=== PATIENT | female | born 1970 | race Caucasian/White ===

== ENCOUNTER → 2016-08-07 | Outpatient (CLI) | payer BC ==
--- NOTE | 2016-08-07 10:10 | MM ---
Reason for exam: screening (asymptomatic). Last mammogram was performed 4 years and 7 months ago. History: Took hormonal contraceptives for 10 years beginning at age 18. Physical Findings: A clinical breast exam by your physician is recommended on an annual basis and results should be correlated with mammographic findings. MG Screening Mammo w CAD Bilateral CC and MLO view(s) were taken. Prior study comparison: January 11, 2012, bilateral digital screening mammo w/CAD. November 14, 2010, bilateral digital screening mammo w/CAD. The breast tissue is heterogeneously dense. This may lower the sensitivity of mammography. There is no discrete abnormality. ASSESSMENT: Negative, BI-RAD 1 RECOMMENDATION: Routine screening mammogram of both breasts in 1 year.
== END | disposition home or self-care (01) ==
LOC: RADMAMWWP 07:22
PROVIDERS: ATTEND Obstetrics & Gynecology
DX: Z12.31 Encounter for screening mammogram for malignant neoplasm of breast (principal)

== ENCOUNTER → 2016-08-07 | Outpatient (CLI) | payer BC ==
[2016-08-07 08:10] LABS: CH 31.2; CHCM 33.3; HCT 37.8 % (34.0-46.0); HDW 2.38; HGB 12.2 gm/dL (11.4-16.0); MCH 30.3 pg (25.0-35.0); MCHC 32.2 g/dL (31.0-37.0); MCV 94.2 fL (80.0-100.0); Mean Platelet Volume 6.5; RBC 4.02 m/uL (3.80-5.40); RDW 12.7 % (11.5-15.5); WBC 5.8 k/uL (3.8-10.6)
[2016-08-07 09:00] LABS: ALT 35 U/L (9-52); AST 47 U/L (14-36); Alkaline Phosphatase 66 U/L (38-126); Anion Gap 9 mmol/L; Blood Urea Nitrogen 11 mg/dL (7-17); Calcium 8.8 mg/dL (8.4-10.2); Carbon Dioxide 25 mmol/L (22-30); Chloride 104 mmol/L (98-107); Cholesterol 156 mg/dL (<200); Glucose 86 mg/dL (74-99); HDL Cholesterol 75 mg/dL (40-60); Non-African American GFR(MDRD) >60 (>60 ml/min/1.73 sqM); Potassium 4.1 mmol/L (3.5-5.1); Sodium 138 mmol/L (137-145); Total Bilirubin 0.6 mg/dL (0.2-1.3); Total Protein 6.9 g/dL (6.3-8.2); Triglycerides 64 mg/dL (<150)
[2016-08-08 11:58] LABS: Gliadin AB IgA, Deaminated 4 UNITS (<20); Gliadin AB IgG, Deaminated 2 UNITS (<20)
[2016-08-08 12:13] LABS: Alternaria alternata IgE <0.35 kU/L (<0.35); Asperg. fumagatus IgE <0.35 kU/L (<0.35); Asperg. fumagatus IgE Class CLASS 0; Birch(Com.Silvr) IgE Class CLASS III; Cat Epith & Dander IgE 2.63 kU/L (<0.35); Cat Epith & Dander IgE Class CLASS II; Clad herbarum IgE <0.35 kU/L (<0.35); Clad herbarum IgE Class CLASS 0; Common Ragweed IgE Class CLASS III; Dermato. Pteronyssinus Class CLASS II; Dermato. Pteronyssinus IgE 1.01 kU/L (<0.35); Dermato. farinae IgE 1.02 kU/L (<0.35); Dermato. farinae IgE Class CLASS II; Maple (Box Elder) IgE 4.38 kU/L (<0.35); Maple (Box Elder) IgE Class CLASS III; Mountain Cedar IgE <0.35 kU/L (<0.35); Mountain Cedar IgE Class CLASS 0; Mouse Urine IgE Class CLASS II; Mulberry IgE Class CLASS 0; Nettle IgE Class CLASS I; Oak IgE 2.25 kU/L (<0.35); Penicillium notatum IgE Class CLASS 0; Rough Marshelder IgE 1.36 kU/L (<0.35); Rough Marshelder IgE Class CLASS II; Timothy Grass IgE 3.11 kU/L (<0.35); Timothy Grass IgE Class CLASS II; White Ash IgE Class CLASS II
== END | disposition home or self-care (01) ==
LOC: LABWHC1 07:19
PROVIDERS: ATTEND Nurse Practitioner Primary Care
DX: Z00.01 Encounter for general adult medical examination with abnormal findings (principal); R19.7 Diarrhea, unspecified; Z88.9 Allergy status to unspecified drugs, medicaments and biological substances
CPT/HCPCS: 36415; 80053; 80061; 82306; 82785; 83516; 84443; 85027; 86003

== ENCOUNTER → 2016-08-25 | Outpatient (CLI) | payer BC ==
--- NOTE | 2016-08-25 16:51 | US ---
EXAMINATION TYPE: US pelvic complete DATE OF EXAM: 08/25/2016 COMPARISON: NONE CLINICAL HISTORY: N92.0 Menorrhagia. 1 episode of menorrhagia TECHNIQUE: TA Date of LMP: 07/25/2016 EXAM MEASUREMENTS: Uterus: 9.7 x 5.1 x 3.34 cm Endometrial Stripe: 0.4 cm Right Ovary: 3.0 x 2.1 x 1.3 cm Left Ovary: 2.8 x 2.0 x 1.3 cm 1. Uterus: Anteverted wnl 2. Endometrium: wnl 3. Right Ovary: 1.3cm follicle seen, wnl 4. Left Ovary: wnl 5. Bilateral Adnexa: wnl 6. Posterior cul-de-sac: wnl IMPRESSION: Normal transabdominal pelvic sonogram. No adnexal mass or free fluid. Normal endometrium.
== END | disposition home or self-care (01) ==
LOC: RADUSWWP 15:57
PROVIDERS: ATTEND Obstetrics & Gynecology
DX: N92.0 Excessive and frequent menstruation with regular cycle (principal)
CPT/HCPCS: 76856

== ENCOUNTER → 2017-08-21 | Outpatient (CLI) | payer BC ==
[2017-08-21 08:35] LABS: Basophils % (A) 0 %; Eosinophils # (A) 0.2 k/uL (0-0.7); Eosinophils % (A) 4 %; HCT 38.9 % (34.0-46.0); HGB 13.1 gm/dL (11.4-16.0); Lymphocytes # (A) 1.1 k/uL (1.0-4.8); Lymphocytes % (A) 23 %; MCH 30.7 pg (25.0-35.0); MCHC 33.6 g/dL (31.0-37.0); MCV 91.4 fL (80.0-100.0); Mean Platelet Volume 6.4; Monocytes # (A) 0.2 k/uL (0-1.0); Monocytes % (A) 5 %; Neutrophils # (A) 3.2 k/uL (1.3-7.7); Neutrophils % (A) 66 %; Platelet Count 225 k/uL (150-450); RBC 4.26 m/uL (3.80-5.40); RDW 12.7 % (11.5-15.5); WBC 4.9 k/uL (3.8-10.6)
[2017-08-21 08:43] LABS: ALT 35 U/L (9-52); AST 41 U/L (14-36); Albumin 4.2 g/dL (3.5-5.0); Alkaline Phosphatase 57 U/L (38-126); Anion Gap 11 mmol/L; Blood Urea Nitrogen 12 mg/dL (7-17); Calcium 8.6 mg/dL (8.4-10.2); Carbon Dioxide 25 mmol/L (22-30); Chloride 105 mmol/L (98-107); Cholesterol 158 mg/dL (<200); Glucose 88 mg/dL (74-99); HDL Cholesterol 68 mg/dL (40-60); LDL Cholesterol,Calculated 79 mg/dL (0-99); Potassium 4.2 mmol/L (3.5-5.1); Sodium 141 mmol/L (137-145); Total Bilirubin 0.5 mg/dL (0.2-1.3); Total Protein 6.7 g/dL (6.3-8.2); Triglycerides 57 mg/dL (<150)
== END | disposition home or self-care (01) ==
LOC: LABWHC1 07:58
PROVIDERS: ATTEND Nurse Practitioner Primary Care
DX: Z00.00 Encounter for general adult medical examination without abnormal findings (principal)
CPT/HCPCS: 36415; 80053; 80061; 82306; 84443; 85025

== ENCOUNTER → 2017-08-27 | Outpatient (CLI) | payer BC ==
--- NOTE | 2017-08-27 09:36 | XR ---
EXAMINATION TYPE: XR chest 2V DATE OF EXAM: 08/27/2017 COMPARISON: NONE HISTORY: COPD TECHNIQUE: Frontal and lateral views of the chest are obtained. FINDINGS: There is no focal air space opacity, pleural effusion, or pneumothorax seen. The cardiac silhouette size is within normal limits. The osseous structures are intact. Surgical clips are pres ent in the right upper quadrant. IMPRESSION: No acute cardiopulmonary process.
[2017-08-28 11:01] LABS: Alt. alternata IgE Class CLASS 0; Alternaria alternata IgE <0.35 kU/L (<0.35); Asperg. fumagatus IgE <0.35 kU/L (<0.35); Asperg. fumagatus IgE Class CLASS 0; Bermuda Grass IgE 2.23 kU/L (<0.35); Birch(Com.Silvr) IgE 4.08 kU/L (<0.35); Birch(Com.Silvr) IgE Class CLASS III; Cat Epith & Dander IgE 5.89 kU/L (<0.35); Cat Epith & Dander IgE Class CLASS III; Clad herbarum IgE <0.35 kU/L (<0.35); Cockroach IgE <0.35 kU/L (<0.35); Cottonwood IgE 0.87 kU/L (<0.35); Dermato. Pteronyssinus IgE 1.43 kU/L (<0.35); Dermato. farinae IgE 1.42 kU/L (<0.35); Dermato. farinae IgE Class CLASS II; Elm IgE 1.03 kU/L (<0.35); Maple (Box Elder) IgE 3.51 kU/L (<0.35); Maple (Box Elder) IgE Class CLASS III; Mountain Cedar IgE 0.43 kU/L (<0.35); Mountain Cedar IgE Class CLASS I; Mouse Urine IgE Class CLASS I; Nettle IgE <0.35 kU/L (<0.35); Nettle IgE Class CLASS 0; Oak IgE 1.75 kU/L (<0.35); Penicillium notatum IgE Class CLASS 0; Rough Marshelder IgE 1.04 kU/L (<0.35); Rough Marshelder IgE Class CLASS II; White Ash IgE Class CLASS II
== END | disposition home or self-care (01) ==
LOC: LABWHC1 08:27
PROVIDERS: ATTEND Internal Medicine Endocrinology, Diabetes & Metabolism
DX: J44.9 Chronic obstructive pulmonary disease, unspecified (principal); B44.81 Allergic bronchopulmonary aspergillosis
CPT/HCPCS: 36415; 71046; 82785; 86001; 86003; 86606; 86609

== ENCOUNTER → 2017-09-18 | Outpatient (CLI) | payer BC ==
--- NOTE | 2017-09-19 12:48 | MM ---
Reason for exam: screening (asymptomatic). Last mammogram was performed 1 year and 1 month ago. History: Took hormonal contraceptives for 10 years beginning at age 18. Physical Findings: A clinical breast exam by your physician is recommended on an annual basis and results should be correlated with mammographic findings. MG 3D Screening Mammo W/Cad Bilateral CC and MLO view(s) were taken. Prior study comparison: August 07, 2016, bilateral MG screening mammo w CAD. January 11, 2012, bilateral digital screening mammo w/CAD. The breast tissue is heterogeneously dense. This may lower the sensitivity of mammography. There is no discrete abnormality. No significant changes when compared with prior studies. ASSESSMENT: Negative, BI-RAD 1 RECOMMENDATION: Routine screening mammogram of both breasts in 1 year.
== END | disposition home or self-care (01) ==
LOC: RADMAMWWP 10:57
PROVIDERS: ATTEND Obstetrics & Gynecology
DX: Z12.31 Encounter for screening mammogram for malignant neoplasm of breast (principal)
CPT/HCPCS: 77063; 77067

== ENCOUNTER → 2018-11-07 | Outpatient (CLI) | payer BC ==
--- NOTE | 2018-11-08 13:43 | MM ---
Reason for exam: screening (asymptomatic). Last mammogram was performed 1 year and 2 months ago. History: Took hormonal contraceptives for 10 years beginning at age 18. Physical Findings: A clinical breast exam by your physician is recommended on an annual basis and results should be correlated with mammographic findings. MG 3D Screening Mammo W/Cad Bilateral CC and MLO view(s) were taken. Prior study comparison: September 18, 2017, bilateral MG 3d screening mammo w/cad. August 07, 2016, bilateral MG screening mammo w CAD. The breast tissue is heterogeneously dense. This may lower the sensitivity of mammography. No suspicious abnormality. No significant changes when compared with prior studies. ASSESSMENT: Negative, BI-RAD 1 RECOMMENDATION: Routine screening mammogram of both breasts in 1 year.
== END ==
LOC: RADMAMWWP 08:30
PROVIDERS: ATTEND Obstetrics & Gynecology
DX: Z12.31 Encounter for screening mammogram for malignant neoplasm of breast (principal)
CPT/HCPCS: 77063; 77067

== ENCOUNTER → 2019-03-18 | Outpatient (CLI) | payer BC ==
--- NOTE | 2019-03-19 08:27 | US ---
EXAMINATION TYPE: US pelvic complete DATE OF EXAM: 03/18/2019 COMPARISON: NONE CLINICAL HISTORY: R10.2 Pelvic pain. TECHNIQUE: Transabdominal (TA). Date of LMP: 03-04-19 EXAM MEASUREMENTS: Uterus: 9.3 x 3.6 x 3.9 cm Endometrial Stripe: 0.7 cm Right Ovary: 2.8 x 1.7 x 1.7 cm Left Ovary: 2.4 x 1.8 x 1.9 cm 1. Uterus: Anteverted wnl 2. Endometrium: wnl 3. Right Ovary: wnl 4. Left Ovary: wnl 5. Bilateral Adnexa: wnl 6. Posterior cul-de-sac: wnl Urinary bladder is sonolucent. Posterior IMPRESSION: 1. No acute abnormality.
== END | disposition home or self-care (01) ==
LOC: RADUSWWP 15:21
PROVIDERS: ATTEND Obstetrics & Gynecology
DX: R10.2 Pelvic and perineal pain (principal)
CPT/HCPCS: 76856

== ENCOUNTER → 2019-04-10 | Outpatient (CLI) | payer BC ==
--- NOTE | 2019-04-10 19:23 | CT ---
EXAMINATION TYPE: CT angio chest with contrast and with 3-D reconstruction renderings DATE OF EXAM: 04/10/2019 5:42 PM HISTORY: Right sided chest pain and elevated d-dimer. CT DLP: 263.7 mGycm. Automated exposure control for dose reduction was used. CONTRAST: CTA scan of the thorax is performed with IV Contrast, patient injected with 50ml mL of Isov ue 370, pulmonary embolism protocol. Three-D reconstructions. COMPARISON: None FINDINGS: LUNGS: The lungs are grossly clear, there is no concerning parenchymal mass or nodule identified. The re is no pleural effusion or pneumothorax seen. The tracheobronchial tree is patent. MEDIASTINUM: There is satisfactory enhancement of the pulmonary artery and its branches; there is no CT evidence for pulmonary embolism. No cardiomegaly or pericardial effusion. No acute aortic patholog y. No adenopathy. OTHER: The right lateral sixth rib shows a 1 cm zone of focal callus laterally, consistent with what appears to be subacute as is chronic healing fracture. Simple hepatic cysts are noted. IMPRESSION: NO ACUTE PROCESS. RIGHT LATERAL SIXTH RIB CALLUS.
== END | disposition home or self-care (01) ==
LOC: RADCTMAIN 17:09
PROVIDERS: ATTEND Internal Medicine Hematology & Oncology
DX: R07.9 Chest pain, unspecified (principal)
CPT/HCPCS: 71275; Q9967

== ENCOUNTER → 2020-03-04 | Outpatient (CLI) | payer BC ==
--- NOTE | 2020-03-09 10:03 | MM ---
Reason for exam: screening (asymptomatic). Last mammogram was performed 1 year and 4 months ago. History: Took hormonal contraceptives for 10 years beginning at age 18. Physical Findings: A clinical breast exam by your physician is recommended on an annual basis and results should be correlated with mammographic findings. MG 3D Screening Mammo W/Cad Bilateral CC and MLO view(s) were taken. Prior study comparison: November 07, 2018, bilateral MG 3d screening mammo w/cad. September 18, 2017, bilateral MG 3d screening mammo w/cad. The breast tissue is heterogeneously dense. This may lower the sensitivity of mammography. No significant changes when compared with prior studies. ASSESSMENT: Negative, BI-RAD 1 RECOMMENDATION: Routine screening mammogram of both breasts in 1 year.
== END | disposition home or self-care (01) ==
LOC: RADMAMWWP 07:44
PROVIDERS: ATTEND Obstetrics & Gynecology
DX: Z12.31 Encounter for screening mammogram for malignant neoplasm of breast (principal)
CPT/HCPCS: 77063; 77067

== ENCOUNTER → 2021-03-07 | Outpatient (CLI) | payer BC ==
--- NOTE | 2021-03-07 09:54 | MM ---
Reason for exam: screening (asymptomatic). Last mammogram was performed 1 year ago. History: Took hormonal contraceptives for 10 years beginning at age 18. Physical Findings: A clinical breast exam by your physician is recommended on an annual basis and results should be correlated with mammographic findings. MG 3D Screening Mammo W/Cad Bilateral CC and MLO view(s) were taken. Prior study comparison: March 04, 2020, bilateral MG 3d screening mammo w/cad. November 07, 2018, bilateral MG 3d screening mammo w/cad. The breast tissue is heterogeneously dense. This may lower the sensitivity of mammography. There are benign appearing round calcifications in the right breast. There is no discrete abnormality. ASSESSMENT: Benign, BI-RAD 2 RECOMMENDATION: Routine screening mammogram of both breasts in 1 year.
== END | disposition home or self-care (01) ==
LOC: RADMAMWWP 07:47
PROVIDERS: ATTEND Obstetrics & Gynecology
DX: Z12.31 Encounter for screening mammogram for malignant neoplasm of breast (principal)
CPT/HCPCS: 77063; 77067

== ENCOUNTER → 2022-03-08 | Outpatient (CLI) | payer BC ==
--- NOTE | 2022-03-09 08:46 | MM ---
Reason for Exam: Screening (asymptomatic). Last screening mammogram was performed 12 month(s) ago. Patient History: Menarche at age 12. First Full-Term at age 26. Patient has history of breast feeding. Hormonal Contraceptives for 10 years from age 18 until age 38. Last menstrual period: 08/18/2021 Risk Values: Rosio 5 year model risk: 1.1%. NCI Lifetime model risk: 8.6%. Prior Study Comparison: 11/07/2018 Bilateral Screening Mammogram, [facility]. 03/04/2020 Bilateral Screening Mammogram, [facility]. 03/07/2021 Bilateral Screening Mammogram, [facility]. Tissue Density: The breast tissue is heterogeneously dense. This may lower the sensitivity of mammography. Findings: Analyzed By CAD. There is no suspicious group of microcalcifications or new suspicious mass in either breast. Benign-appearing round calcifications within the right breast. No significant change from prior exams. Overall Assessment: Benign, BI-RAD 2 Management: Screening Mammogram of both breasts in 1 year. A clinical breast exam by your physician is recommended on an annual basis and results should be correlated with mammographic findings. Electronically signed and approved by: Sha Leary D.O.
== END | disposition home or self-care (01) ==
LOC: RADMAMWWP 07:47
PROVIDERS: ATTEND Obstetrics & Gynecology
DX: Z12.31 Encounter for screening mammogram for malignant neoplasm of breast (principal)
CPT/HCPCS: 77063; 77067

== ENCOUNTER → 2022-03-30 | Outpatient (CLI) | payer BC ==
--- NOTE | 2022-03-30 11:46 | BD ---
EXAMINATION TYPE: Axial Bone Density DATE OF EXAM: 03/30/2022 COMPARISON: NONE CLINICAL HISTORY: 52 years year old Female. ICD-10 CODE: N95.1 POST MENOPAUSAL STATE Height: 5 FT 5 IN Weight: 175 FRAX RISK QUESTIONS: Alcohol (3 or more units per day): NO Family History (Parent hip fracture): NO Glucocorticoids (More than 3mos): NO (Ex: prednisone, prednisolone, methylprednisolone, dexamethasone, and hydrocortisone). History of Fracture in Adulthood: YES Secondary Osteoporosis: 1. Type 1 Diabetes: NO 2. Hyperthyroidism: NO 3. Menopause before 45: NO 4. Malnutrition: NO 5. Chronic liver disease: NO Rheumatoid Arthritis: NO Current Tobacco Use: YES RISK FACTORS HISTORY OF: Surgery to Spine/Hip(right/left)/Wrist (right/left): NO Family History of Osteoporosis: NO Active: MODERATE Diet low in dairy products/other sources of calcium: NO Postmenopausal woman: YES Take estrogen and/or progesterone medications: NO Lost more than 2 inches in height since high school: NO Frequent falls: NO Poor Health: GOOD Hyperparathyroidism: NO Adrenal Insufficiency: NO MEDICATIONS: Additional Medications: CELEXA, Additional History: EXAM MEASUREMENTS: Bone mineral densitometry was performed using the Dovetail System. Bone mineral density as measured about the Lumbar spine is: ----- L1-L4(G/cm2): 1.201 T Score Values are as follows: ----- L1: 0.1 ----- L2: -0.4 ----- L3: 0.1 ----- L4: 0.6 ----- L1-L4: 0.2 BASELINE Bone mineral density about the R hip (g/cm2): 0.795 Bone mineral density about the L hip (g/cm2): 0.816 T Score values are as follows: -----R Neck: -1.7 -----L Neck: -1.6 -----R Total: -1.0 -----L Total: -1.2 BASELINE FRAX%s: The graph provided illustrates a 6.6 % chance for a major osteoporotic fx and a 0.6 % chance for the hips probability for fx in 10 years time. IMPRESSION: Osteopenia (T Score between -2.5 and -1). There is slightly increased risk of fracture and the patient may be considered for treatment. Re-Screen 2-5 years. NOTE: T-SCORE=SD OF THE YOUNG ADULT MEAN.
== END | disposition home or self-care (01) ==
LOC: RADBDWWP 09:47
PROVIDERS: ATTEND Obstetrics & Gynecology
DX: M85.89 Other specified disorders of bone density and structure, multiple sites (principal); N95.1 Menopausal and female climacteric states
CPT/HCPCS: 77080

== ENCOUNTER → 2023-04-10 | Outpatient (CLI) | payer BC ==
--- NOTE | 2023-04-11 09:16 | MM ---
Reason for Exam: Screening (asymptomatic). Last mammogram was performed 1 year(s) and 1 month(s) ago. Patient History: Menarche at age 12. First Full-Term at age 26. Patient has history of breast feeding. Hormonal Contraceptives for 10 years from age 18 until age 38. Risk Values: Rosio 5 year model risk: 1.2%. NCI Lifetime model risk: 8.3%. Prior Study Comparison: 03/04/2020 Bilateral Screening Mammogram, [facility]. 03/07/2021 Bilateral Screening Mammogram, [facility]. 03/08/2022 Bilateral MG 3D screening mammo w/cad, [facility]. Tissue Density: There are scattered fibroglandular densities. Findings: Analyzed By CAD. There is no suspicious group of microcalcifications or new suspicious mass. Overall Assessment: Negative, BI-RAD 1 Management: Screening Mammogram of both breasts in [address] [facility] will attempt to contact patient to return for supplemental views and ultrasound if indicated. Patient should continue monthly self-breast exams. A clinical breast exam by your physician is recommended on an annual basis. This exam should not preclude additional follow-up of suspicious palpable abnormalities. Note on Rosio scores and lifetime risk: 1. A Rosio score greater than 3% is considered moderate risk. If this is the case, consider specialist referral to assess eligibility for a risk reducing agent. 2. If overall lifetime risk for the development of breast cancer is 20% or higher, the patient may qualify for future screening with alternating mammogram and breast MRI. Electronically signed and approved by: Kenny Chakraborty DO
== END | disposition home or self-care (01) ==
LOC: RADMAMWWP 07:21
PROVIDERS: ATTEND Obstetrics & Gynecology
DX: Z12.31 Encounter for screening mammogram for malignant neoplasm of breast (principal)
CPT/HCPCS: 77063; 77067

== ENCOUNTER 2023-05-08 09:25 | Observation (INO) | payer BC ==
--- NOTE | 2023-05-08 09:51 | ED ---
General Adult HPI - General Chief complaint: Neuro Symptoms/Deficit Stated complaint: Neuro Symptoms Time Seen by Provider: 05/08/23 09:34 Source: patient, RN notes reviewed, old records reviewed Mode of arrival: ambulatory Limitations: no limitations - History of Present Illness Initial comments: 53-year-old female presenting with acute confusion and memory loss. Patient presents at approximately 9:30 AM after having a 45-minute episode where she was confused and does not recall any of the events that took place. She is accompanied by her coworker and friend was able to give detailed history of this. Of time. The patient has a minimal headache without other complaint. No focal numbness or weakness. - Related Data Allergies Allergy/AdvReac Type Severity Reaction Status Date / Time peanut Allergy Anaphylaxis Verified 05/08/23 09:32 shrimp Allergy Anaphylaxis Verified 05/08/23 09:32 Review of Systems ROS Statement: Those systems with pertinent positive or pertinent negative responses have been documented in the HPI. ROS Other: All systems not noted in ROS Statement are negative. Past Medical History Past Medical History: No Reported History, Hypertension History of Any Multi-Drug Resistant Organisms: None Reported Past Surgical History: No Surgical Hx Reported, Cholecystectomy Past Psychological History: No Psychological Hx Reported Smoking Status: Current every day smoker Past Alcohol Use History: Rare Past Drug Use History: None Reported General Exam Limitations: no limitations General appearance: alert, in no apparent distress Head exam: Present: atraumatic, normocephalic Eye exam: Present: normal appearance, PERRL ENT exam: Present: normal exam Neck exam: Present: normal inspection. Absent: tenderness, meningismus Respiratory exam: Present: normal lung sounds bilaterally. Absent: respiratory distress, wheezes Cardiovascular Exam: Present: regular rate, normal rhythm GI/Abdominal exam: Present: soft. Absent: distended, tenderness, guarding Extremities exam: Present: normal inspection, normal capillary refill Neurological exam: Present: alert, oriented X3, CN II-XII intact, other (NIH is 0). Absent: motor sensory deficit Psychiatric exam: Present: normal affect, normal mood Skin exam: Present: warm, dry, intact. Absent: cyanosis, diaphoretic Course Vital Signs 05/08/23 05/08/23 05/08/23 09:27 09:32 10:32 Temperature 98.9 F 98 F Pulse Rate 82 72 65 Respiratory 18 16 16 Rate Blood Pressure 166/82 150/89 146/84 O2 Sat by Pulse 99 99 98 Oximetry - Reevaluation(s) Reevaluation #1: 05/08/23 11:18 Patient having a warm sensation to the right side of her face, no numbness, no facial asymmetry, vital signs normal, NIH 0. Medical Decision Making - Medical Decision Making Was pt. sent in by a medical professional or institution (, PA, AIRPORT OPERATIONS OFFICER, urgent care, hospital, or half-way...) When possible be specific @ -No Did you speak to anyone other than the patient for history (EMS, parent, family, police, friend...)? What history was obtained from this source @ -No Did you review nursing and triage notes (agree or disagree)? Why? @ -I reviewed and agree with nursing and triage notes Were old charts reviewed (outside hosp., previous admission, EMS record, old EKG, old radiological studies, urgent care reports/EKG's, half-way records)? Report findings @ -No old charts were reviewed Differential Diagnosis (chest pain, altered mental status, abdominal pain women, abdominal pain men, vaginal bleeding, weakness, fever, dyspnea, syncope, headache, dizziness, GI bleed, back pain, seizure, CVA, palpatations, mental health, musculoskeletal)? @ -Differential CVA Ischemic stroke, hemorrhagic stroke, brain tumor, atypical migraine, Wernicke's encephalopathy, seizure, multiple sclerosis, meningitis, encephalitis, hypoglycemia, Guillain-Nickerson, electrolytes disturbance, myasthenia gravis.... This is not meant to be an all-inclusive list EKG interpreted by me (3pts min.). @ -EKG: Sinus rhythm rate 72, NV interval 203, QRS duration 89, QTc [address] segment elevation. X-rays interpreted by me (1pt min.). @Chest x-ray negative for acute cardiopulmonary findings. CT interpreted by me (1pt min.). @CT brain, negative for intracranial hemorrhage or mass effect U/S interpreted by me (1pt. min.). @ -None done What testing was considered but not performed or refused? (CT, X-rays, U/S, labs)? Why? @ -None What meds were considered but not given or refused? Why? @ -None Did you discuss the management of the patient with other professionals (professionals i.e. , PA, AIRPORT OPERATIONS OFFICER, lab, RT, psych nurse, social services assistant, perianesthesia manager, teacher, personnel officer, outpatient case manager)? Give summary @[facility] hospitalist Was smoking cessation discussed for >3mins.? @ -No Was critical care preformed (if so, how long)? @ -No Were there social determinants of health that impacted care today? How? (Homelessness, low income, unemployed, alcoholism, drug addiction, transportation, low edu. Level, literacy, decrease access to med. care, assisted, rehab)? @ -No Was there de-escalation of care discussed even if they declined (Discuss DNR or withdrawal of care, Hospice)? DNR status @ -No What co-morbidities impacted this encounter? (DM, HTN, Smoking, COPD, CAD, Cancer, CVA, ARF, Chemo, Hep., AIDS, mental health diagnosis, sleep apnea, morbid obesity)? @ -None Was patient admitted / discharged? Hospital course, mention meds given and route, prescriptions, significant lab abnormalities, going to OR and other pertinent info. @ -53-year-old female with a 45-minute. Of complete amnesia. Patient's NIH is 0 upon arrival. Her history is suggestive of transient global amnesia. Workup initiated including EKG, CBC, CMP, CT brain without contrast and chest x-ray. Workup is unremarkable. Patient does develop some paresthesia to the right side of the face. Given this finding although the NIH is still 0 she will be observed with neurology consultation, MRI.] Undiagnosed new problem with uncertain prognosis? @ -No Drug Therapy requiring intensive monitoring for toxicity (Heparin, Nitro, Insulin, Cardizem)? @ -No Were any procedures done? @ -No Diagnosis/symptom? @ -TIA versus transient global amnesia Acute, or Chronic, or Acute on Chronic? @Acute Uncomplicated (without systemic symptoms) or Complicated (systemic symptoms)? @ -Default Side effects of treatment? @ -No Exacerbation, Progression, or Severe Exacerbation? @ -No Poses a threat to life or bodily function? How? (Chest pain, USA, MT, pneumonia, PE, COPD, DKA, ARF, appy, cholecystitis, CVA, Diverticulitis, Homicidal, Suicidal, threat to staff... and all critical care pts) @ -Yes, risk of CVA - Lab Data Result diagrams: 05/08/23 09:47 05/08/23 09:47 Lab Results 05/08/23 05/08/23 05/08/23 Range/Units 09:47 09:47 09:47 WBC 5.3 (3.8-10.6) k/uL RBC 4.52 (3.80-5.40) m/uL Hgb 14.0 (11.4-16.0) gm/dL Hct 41.8 (34.0-46.0) % MCV 92.5 (80.0-100.0) fL MCH 30.9 (25.0-35.0) pg MCHC 33.5 (31.0-37.0) g/dL RDW 12.6 (11.5-15.5) % Plt Count 207 (150-450) k/uL MPV 6.8 Neutrophils % 69 % Lymphocytes % 23 % Monocytes % 3 % Eosinophils % 2 % Basophils % 0 % Neutrophils # 3.7 (1.3-7.7) k/uL Lymphocytes # 1.2 (1.0-4.8) k/uL Monocytes # 0.2 (0-1.0) k/uL Eosinophils # 0.1 (0-0.7) k/uL Basophils # 0.0 (0-0.2) k/uL PT 9.9 L (10.0-12.5) sec INR 0.9 (<1.2) APTT 23.2 (22.0-30.0) sec Sodium 143 (137-145) mmol/L Potassium 4.1 (3.5-5.1) mmol/L Chloride 107 (98-107) mmol/L Carbon Dioxide 26 (22-30) mmol/L Anion Gap 10 mmol/L BUN 12 (7-17) mg/dL Creatinine 0.78 (0.52-1.04) mg/dL Est GFR (CKD-EPI)AfAm >90 (>60 ml/min/1.73 sqM) Est GFR (CKD-EPI)NonAf 86 (>60 ml/min/1.73 sqM) Glucose 106 H (74-99) mg/dL Calcium 9.4 (8.4-10.2) mg/dL Total Bilirubin 0.5 (0.2-1.3) mg/dL AST 54 H (14-36) U/L ALT 29 (4-34) U/L Alkaline Phosphatase 88 (38-126) U/L Creatine Kinase 164 H (30-135) U/L Troponin I (0.000-0.034) ng/mL Total Protein 7.6 (6.3-8.2) g/dL Albumin 4.9 (3.5-5.0) g/dL Urine Color Urine Appearance (Clear) Urine pH (5.0-8.0) Ur Specific Dupont (1.001-1.035) Urine Protein (Negative) Urine Glucose (UA) (Negative) Urine Ketones (Negative) Urine Blood (Negative) Urine Nitrite (Negative) Urine Bilirubin (Negative) Urine Urobilinogen (<2.0) mg/dL Ur Leukocyte Esterase (Negative) Urine RBC (0-5) /hpf Urine WBC (0-5) /hpf Ur Squamous Epith Cells (0-4) /hpf Urine Mucus (None) /hpf 05/08/23 05/08/23 Range/Units 09:47 09:47 WBC (3.8-10.6) k/uL RBC (3.80-5.40) m/uL Hgb (11.4-16.0) gm/dL Hct (34.0-46.0) % MCV (80.0-100.0) fL MCH (25.0-35.0) pg MCHC (31.0-37.0) g/dL RDW (11.5-15.5) % Plt Count (150-450) k/uL MPV Neutrophils % % Lymphocytes % % Monocytes % % Eosinophils % % Basophils % % Neutrophils # (1.3-7.7) k/uL Lymphocytes # (1.0-4.8) k/uL Monocytes # (0-1.0) k/uL Eosinophils # (0-0.7) k/uL Basophils # (0-0.2) k/uL PT (10.0-12.5) sec INR (<1.2) APTT (22.0-30.0) sec Sodium (137-145) mmol/L Potassium (3.5-5.1) mmol/L Chloride (98-107) mmol/L Carbon Dioxide (22-30) mmol/L Anion Gap mmol/L BUN (7-17) mg/dL Creatinine (0.52-1.04) mg/dL Est GFR (CKD-EPI)AfAm (>60 ml/min/1.73 sqM) Est GFR (CKD-EPI)NonAf (>60 ml/min/1.73 sqM) Glucose (74-99) mg/dL Calcium (8.4-10.2) mg/dL Total Bilirubin (0.2-1.3) mg/dL AST (14-36) U/L ALT (4-34) U/L Alkaline Phosphatase (38-126) U/L Creatine Kinase (30-135) U/L Troponin I <0.012 (0.000-0.034) ng/mL Total Protein (6.3-8.2) g/dL Albumin (3.5-5.0) g/dL Urine Color Colorless Urine Appearance Cloudy H (Clear) Urine pH 6.5 (5.0-8.0) Ur Specific Dupont 1.015 (1.001-1.035) Urine Protein Negative (Negative) Urine Glucose (UA) Negative (Negative) Urine Ketones Negative (Negative) Urine Blood Trace H (Negative) Urine Nitrite Negative (Negative) Urine Bilirubin Negative (Negative) Urine Urobilinogen <2.0 (<2.0) mg/dL Ur Leukocyte Esterase Negative (Negative) Urine RBC 5 (0-5) /hpf Urine WBC 2 (0-5) /hpf Ur Squamous Epith Cells 17 H (0-4) /hpf Urine Mucus Rare H (None) /hpf Disposition Clinical Impression: Transient cerebral ischemia, Transient global amnesia Disposition: ADMITTED IP TO THIS [facility] Condition: Stable Is patient prescribed a controlled substance at d/c from ED?: No Referrals: Renny Hernandez [Primary Care Provider] - 1-2 days Time of Disposition: 11:21
[2023-05-08 10:20] LABS: Basophils % (A) 0 %; Eosinophils # (A) 0.1 k/uL (0-0.7); Eosinophils % (A) 2 %; HCT 41.8 % (34.0-46.0); Lymphocytes # (A) 1.2 k/uL (1.0-4.8); Lymphocytes % (A) 23 %; MCH 30.9 pg (25.0-35.0); MCHC 33.5 g/dL (31.0-37.0); MCV 92.5 fL (80.0-100.0); Mean Platelet Volume 6.8; Monocytes # (A) 0.2 k/uL (0-1.0); Monocytes % (A) 3 %; Neutrophils # (A) 3.7 k/uL (1.3-7.7); Neutrophils % (A) 69 %; Platelet Count 207 k/uL (150-450); RBC 4.52 m/uL (3.80-5.40); RDW 12.6 % (11.5-15.5); WBC 5.3 k/uL (3.8-10.6)
--- NOTE | 2023-05-08 10:24 | CT ---
EXAMINATION TYPE: CT brain wo con DATE OF EXAM: 05/08/2023 COMPARISON: None available. HISTORY: Confusion with headache. CT DLP: 1125.4 mGycm Automated exposure control for dose reduction was used. FINDINGS: There is no acute intracranial hemorrhage, mass, mass effect, midline shift, extra-axial fluid collec tion or hydrocephalus. The blanco-white distinction is intact without evidence of an acute major vessel infarct. The visualized paranasal sinuses and mastoid air cells are clear. IMPRESSION: NO ACUTE INTRACRANIAL PROCESS.
[2023-05-08 10:29] LABS: Appearance,Urine Cloudy (Clear); Bilirubin,Urine Negative (Negative); Blood,Urine Trace (Negative); Color,Urine Colorless; Glucose,Urine (UA) Negative (Negative); Ketones,Urine Negative (Negative); Leukocyte Esterase,Urine Negative (Negative); Mucus,Urine Rare /hpf; Nitrite,Urine Negative (Negative); PH, Urine 6.5 (5.0-8.0); Protein,Urine Negative (Negative); RBC,Urine 5 /hpf (0-5); Specific Gravity,Urine 1.015 (1.001-1.035); Squamous Epithelial Cell,Urine 17 /hpf (0-4); Urobilinogen,Urine <2.0 mg/dL (<2.0); WBC,Urine 2 /hpf (0-5)
[2023-05-08 10:31] LABS: INR 0.9 (<1.2); Partial Thromboplastin Time 23.2 sec (22.0-30.0); Prothrombin Time 9.9 sec (10.0-12.5)
[2023-05-08 10:34] LABS: ALT 29 U/L (4-34); AST 54 U/L (14-36); African American GFR (CKD) >90 (>60 ml/min/1.73 sqM); Albumin 4.9 g/dL (3.5-5.0); Alkaline Phosphatase 88 U/L (38-126); Anion Gap 10 mmol/L; Blood Urea Nitrogen 12 mg/dL (7-17); Calcium 9.4 mg/dL (8.4-10.2); Carbon Dioxide 26 mmol/L (22-30); Chloride 107 mmol/L (98-107); Creatine Kinase 164 U/L (30-135); Glucose 106 mg/dL (74-99); Non-African American GFR(CKD) 86 (>60 ml/min/1.73 sqM); Potassium 4.1 mmol/L (3.5-5.1); Sodium 143 mmol/L (137-145); Total Bilirubin 0.5 mg/dL (0.2-1.3); Total Protein 7.6 g/dL (6.3-8.2)
--- NOTE | 2023-05-08 11:03 | XR ---
EXAMINATION TYPE: XR chest 2V DATE OF EXAM: 05/08/2023 COMPARISON: 08/27/2017 HISTORY: 53-year-old female confusion, altered mental status TECHNIQUE: PA and lateral views FINDINGS: The cardiomediastinal silhouette, aorta, and pulmonary vasculature are within normal limits. Lungs an d pleural spaces are clear. IMPRESSION: No acute cardiopulmonary process.
[2023-05-08] MEDS: ASPIRIN 325 MG TAB PO STA (12:22)
--- NOTE | 2023-05-08 13:59 | P.HPIM ---
History of Present Illness This is a pleasant 53 years old female with no significant past medical history. Presents because of transient change in her mental status She was talking to her coworker today, she came and she sat in her coworker chair which is unusual for her and then she started asking the same question about the date for tomorrow as she is supposed to get colposcopy procedure for her gynecological evaluation, because she keep repeated the questions and then she could not remember what happened and the next thing she remembers she is in the emergency room. As per coworkers home she talk to later told her that she put her head down and they were worried that she had a stroke, there was no involuntary movement or seizure-like activity. She did not pass out. No paralysis or anything she has been told by her coworkers. Currently she complains from mild headache but no dizziness weakness numbness. She is oriented time place and person No heart problems no chest pain or dyspnea or coughing. No change in urine or bowel habits. She smokes half pack per day and she was counseled to quit and she agrees but she declines nicotine patch, she drinks alcohol occasionally no illicit drugs. Vital stable Labs are stable including CBC, INR, BMP, LFT, troponin Chest x-ray is negative for acute process CT of brain is negative for acute process EKG showing sinus rhythm at [address]-T changes Patient was started on 325 mg of aspirin Review of Systems Review of systems CONSTITUTIONAL: No fever, no malaise, no fatigue. HEENT: No recent visual problems or hearing problems. Denied any sore throat. CARDIOVASCULAR: No orthopnea, PND, no palpitations, no syncope. PULMONARY: No shortness of breath, no cough, no hemoptysis. GASTROINTESTINAL: No diarrhea, no nausea, no vomiting, no abdominal pain. Normoactive bowel sounds. NEUROLOGICAL: No headaches, no weakness, no numbness. HEMATOLOGICAL: Denies any bleeding or petechiae. GENITOURINARY: Denies any burning micturition, frequency, or urgency. MUSCULOSKELETAL/RHEUMATOLOGICAL: Denies any joint pain, swelling, or any muscle pain. ENDOCRINE: Denies any polyuria or polydipsia. Past Medical History Past Medical History: No Reported History, Hypertension History of Any Multi-Drug Resistant Organisms: None Reported Past Surgical History: No Surgical Hx Reported, Cholecystectomy Past Psychological History: No Psychological Hx Reported Smoking Status: Current every day smoker Past Alcohol Use History: Rare Past Drug Use History: None Reported Medications and Allergies Home Medications Medication Instructions Recorded Confirmed Type Cetirizine HCl [Zyrtec] 10 mg PO DAILY 05/08/23 05/08/23 History Citalopram Hydrobromide 20 mg PO DAILY 05/08/23 05/08/23 History [Citalopram HBr] Montelukast [Singulair] 10 mg PO HS 05/08/23 05/08/23 History Allergies Allergy/AdvReac Type Severity Reaction Status Date / Time latex Allergy Rash/Hives Verified 05/08/23 11:44 peanut Allergy Anaphylaxis Verified 05/08/23 11:44 shellfish derived [Shellfish] Allergy Anaphylaxis Verified 05/08/23 11:44 shrimp Allergy Anaphylaxis Verified 05/08/23 11:44 fresh fruit & vegetables Allergy Rash/Hives Uncoded 05/08/23 11:44 Physical Exam Vitals: Vital Signs Temp Pulse Resp BP Pulse Ox 05/08/23 12:20 60 18 123/74 97 05/08/23 10:32 65 16 146/84 98 05/08/23 09:32 98 F 72 16 150/89 99 05/08/23 09:27 98.9 F 82 18 166/82 99 Intake and Output 05/07/23 05/08/23 05/08/23 22:59 06:59 14:59 Other: Weight 74.843 kg GENERAL: The patient is alert and oriented x3, not in any acute distress. Well developed, well nourished. HEENT: Pupils are round and equally reacting to light. EOMI. No scleral icterus. No conjunctival pallor. Normocephalic, atraumatic. No pharyngeal erythema. No thyromegaly. CARDIOVASCULAR: S1 and S2 present. No murmurs, rubs, or gallops. PULMONARY: Chest is clear to auscultation, no wheezing , no crackles. ABDOMEN: Soft, nontender, nondistended, normoactive bowel sounds. No palpable organomegaly. MUSCULOSKELETAL: No joint swelling or deformity. EXTREMITIES: No cyanosis, clubbing, or pedal edema. NEUROLOGICAL: Gross neurological examination did not reveal any focal deficits. SKIN: No rashes. no petechiae. Results CBC & Chem 7: 05/08/23 09:47 05/08/23 09:47 Labs: Abnormal Lab Results - Last 24 Hours (Table) 05/08/23 05/08/23 05/08/23 Range/Units 09:47 09:47 09:47 PT 9.9 L (10.0-12.5) sec Glucose 106 H (74-99) mg/dL AST 54 H (14-36) U/L Creatine Kinase 164 H (30-135) U/L Urine Appearance Cloudy H (Clear) Urine Blood Trace H (Negative) Ur Squamous Epith Cells 17 H (0-4) /hpf Urine Mucus Rare H (None) /hpf Assessment and Plan Assessment: Transient global amnesia, rule out TIA versus stroke Nicotine dependence Plan: Continue with close monitoring Neurology consult Patient may benefit from MRI of the brain Labs and medication were reviewed.. Continue same treatment. Continue with symptomatic treatment. Resume home medication. Monitor labs and vitals. DVT and GI prophylaxis. Further recommendations as per clinical course of the patient DVT prophylaxis: Subcutaneous heparin GI Prophylaxis: Pepcid PT/OT: Pending Prognosis is guarded
--- NOTE | 2023-05-08 20:22 | US ---
EXAMINATION TYPE: US carotid duplex BILAT DATE OF EXAM: 05/08/2023 COMPARISON: NONE CLINICAL INDICATION: Female, 53 years old with history of TGA; Pt states she had an episode earlier w here she did not remember what she did. TECHNIQUE: Carotid duplex ultrasound examination. Indirect Doppler criteria was utilized. FINDINGS: EXAM MEASUREMENTS: RIGHT: Peak Systolic Velocity (PSV) cm/sec ----- Right CCA: 88.6 ----- Right ICA: 115.8 ----- Right ECA: 71.3 ICA/CCA ratio: 1.3 RIGHT: End Diastole cm/sec ----- Right CCA: 26.0 ----- Right ICA: 31.4 ----- Right ECA: 13.1 LEFT: Peak Systolic Velocity (PSV) cm/sec ----- Left CCA: 72.6 ----- Left ICA: 76.6 ----- Left ECA: 76.6 ICA/CCA ratio: 1.1 LEFT: End Diastole cm/sec ----- Left CCA: 29.0 ----- Left ICA: 32.9 ----- Left ECA: 17.1 VERTEBRALS (direction of flow): Right Vertebral: Antegrade Left Vertebral: Antegrade Rhythm: Normal PSYCHOLOGIST CHIEF NOTES: No plaque seen. No significantly elevated velocities IMPRESSION: No significant vascular stenosis or atherosclerotic disease.
[2023-05-08] MEDS: MONTELUKAST 10 MG TAB PO SCH (21:10)
[2023-05-08] MEDS: HEPARIN SODIUM,PORCINE 5,000 UNIT/ML 1 ML VIAL SQ SCH (21:10)
[2023-05-08] MEDS: FAMOTIDINE 20 MG/2 ML VIAL IV SCH (21:10)
[2023-05-09] MEDS: ACETAMINOPHEN TAB 325 MG TAB PO PRN (05:49)
--- NOTE | 2023-05-09 07:46 | P.PN ---
Subjective This is a pleasant 53 years old female with no significant past medical history. Presents because of transient change in her mental status She was talking to her coworker today, she came and she sat in her coworker chair which is unusual for her and then she started asking the same question about the date for tomorrow as she is supposed to get colposcopy procedure for her gynecological evaluation, because she keep repeated the questions and then she could not remember what happened and the next thing she remembers she is in the emergency room. As per coworkers home she talk to later told her that she put her head down and they were worried that she had a stroke, there was no involuntary movement or seizure-like activity. She did not pass out. No paralysis or anything she has been told by her coworkers. Currently she complains from mild headache but no dizziness weakness numbness. She is oriented time place and person No heart problems no chest pain or dyspnea or coughing. No change in urine or bowel habits. She smokes half pack per day and she was counseled to quit and she agrees but she declines nicotine patch, she drinks alcohol occasionally no illicit drugs. Vital stable Labs are stable including CBC, INR, BMP, LFT, troponin Chest x-ray is negative for acute process CT of brain is negative for acute process EKG showing sinus rhythm at [address]-T changes Patient was started on 325 mg of aspirin 05/09/2023 Patient has no more episodes of amnesia or other neurological symptoms or signs. No other new complaint She is hemodynamically stable afebrile Carotid duplex was negative for acute stenosis or probable Patient undergoing EEG Echocardiogram and MRI of the brain are pending as well Objective - Vital Signs Vital signs: Vital Signs Temp 98.7 F 05/08/23 20:00 Pulse 62 05/09/23 06:00 Resp 20 05/09/23 06:00 BP 127/80 05/09/23 06:00 Pulse Ox 100 05/09/23 06:00 FiO2 Intake & Output 05/08/23 05/09/23 05/09/23 18:59 06:59 18:59 Weight 74.843 kg Other: # Voids 1 - Exam GENERAL: The patient is alert and oriented x3, not in any acute distress. Well developed, well nourished. HEENT: Pupils are round and equally reacting to light. EOMI. No scleral icterus. No conjunctival pallor. Normocephalic, atraumatic. No pharyngeal erythema. No thyromegaly. CARDIOVASCULAR: S1 and S2 present. No murmurs, rubs, or gallops. PULMONARY: Chest is clear to auscultation, no wheezing , no crackles. ABDOMEN: Soft, nontender, nondistended, normoactive bowel sounds. No palpable organomegaly. MUSCULOSKELETAL: No joint swelling or deformity. EXTREMITIES: No cyanosis, clubbing, or pedal edema. NEUROLOGICAL: Gross neurological examination did not reveal any focal deficits. SKIN: No rashes. no petechiae. - Labs CBC & Chem 7: 05/08/23 09:47 05/08/23 09:47 Labs: Abnormal Lab Results - Last 24 Hours (Table) 05/08/23 05/08/23 05/08/23 Range/Units 09:47 09:47 09:47 PT 9.9 L (10.0-12.5) sec Glucose 106 H (74-99) mg/dL AST 54 H (14-36) U/L Creatine Kinase 164 H (30-135) U/L Urine Appearance Cloudy H (Clear) Urine Blood Trace H (Negative) Ur Squamous Epith Cells 17 H (0-4) /hpf Urine Mucus Rare H (None) /hpf Assessment and Plan Assessment: Transient global amnesia, rule out TIA versus stroke Nicotine dependence Plan: Continue with close monitoring Neurology consult Patient may benefit from MRI of the brain Labs and medication were reviewed.. Continue same treatment. Continue with symptomatic treatment. Resume home medication. Monitor labs and vitals. DVT and GI prophylaxis. Further recommendations as per clinical course of the patient DVT prophylaxis: Subcutaneous heparin GI Prophylaxis: Pepcid PT/OT: Pending Prognosis is guarded
[2023-05-09] MEDS: ASPIRIN 325 MG TAB PO SCH (08:23)
[2023-05-09] MEDS: CITALOPRAM HYDROBROMIDE 20 MG TAB PO SCH (08:23)
[2023-05-09] MEDS: LORATADINE 10 MG TAB PO SCH (08:23)
--- NOTE | 2023-05-09 10:42 | P.CNNES ---
History of Present Illness Consult date: 05/08/23 Requesting physician: Kenny Mcgovern Reason for Consult: TIA versus transient global amnesia History of Present Illness: Patient is a 53-year-old right-handed female with history of anxiety disorder, tobacco use, came to the hospital this morning at 9:25 AM for acute episode of amnesia. Patient states that early this morning today, she went to work as usual and arrived there at 8:30 AM. She was feeling fine, walking, talking well. About 15 minutes after while she was at work, she became confused, asking coworker "what day it is?". She kept on repeating "I am going to have colposcopy tomorrow". 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 She kept on repeating the same phrases as above. The coworkers brought her to the ER and one of the car. Patient states that she martinez s remember when she went in to her office in the morning, making cup of coffee and then sitting down, turning on the computer and then she does not remember until her memory came back while she was in the ride to the hospital. In general, there is about 45 minutes of complete loss of memory. All above information during the time provided to her at this time by her coworkers. Patient at present complaining of mild right occipital, left parietal and then frontal headache. Denies any focal symptoms. She did not have any slurred speech, facial droop, any visual disturbance, problem with balance, focal weakness or sensory loss. Vital signs on arrival blood pressure 166/82, which came down to 150/68, pulse rate 82 temperature 98.9. Blood test shows normal CBC, PT PTT, normal electrolytes, renal functions, AST is 54, ALT 29. CK1 64, troponin negative, UA negative. EKG is normal, chest x-ray normal. CT head showed no acute intracranial process. I personally reviewed CT head, agree with the findings. Paranasal sinuses and EAC are clear. Patient does have history of anxiety disorder but no depression. Denies any history of hypertension or diabetes. She has smoked half pack per day for 20 years. She denies hyperlipidemia. No previous history of strokes, TIA or any history of concussion. No previous history of TGA. Patient takes Celexa 20 mg, Singulair and cetirizine. Patient does not take any antiplatelet medication at home. Patient has positive family history of stroke, as her dad of massive stroke. Patient states that she always runs high D-dimers. Review of Systems Constitutional: Denies chills, Denies fever Eyes: denies blurred vision, denies diplopia, denies pain, denies loss of vision Ears: deny: decreased hearing, ear discharge Ears, nose, mouth and throat: Reports headache, Denies sore throat, Denies verti go Cardiovascular: Denies chest pain, Denies lightheadedness, Denies shortness of breath Respiratory: Denies cough, Denies excessive sputum Gastrointestinal: Denies abdominal pain, Denies diarrhea, Denies nausea, Denies vomiting Genitourinary: Denies dysuria, Denies hematuria, Denies mixed incontinence Musculoskeletal: Denies morning stiffness, Denies myalgias Integumentary: Denies pruritus, Denies rash Neurological: Reports as per HPI Psychiatric: Reports anxiety, Denies depression Hematologic/Lymphatic: Denies easy bleeding, Denies easy bruising Past Medical History Past Medical History: No Reported History, Hypertension History of Any Multi-Drug Resistant Organisms: None Reported Past Surgical History: No Surgical Hx Reported, Cholecystectomy Past Psychological History: No Psychological Hx Reported Smoking Status: Current every day smoker Past Alcohol Use History: Rare Past Drug Use History: None Reported Medications and Allergies Home Medications Medication Instructions Recorded Confirmed Type Cetirizine HCl [Zyrtec] 10 mg PO DAILY 05/08/23 05/08/23 History Citalopram Hydrobromide 20 mg PO DAILY 05/08/23 05/08/23 History [Citalopram HBr] Montelukast [Singulair] 10 mg PO HS 05/08/23 05/08/23 History Allergies Allergy/AdvReac Type Severity Reaction Status Date / Time latex Allergy Rash/Hives Verified 05/08/23 11:44 peanut Allergy Anaphylaxis Verified 05/08/23 11:44 shellfish derived [Shellfish] Allergy Anaphylaxis Verified 05/08/23 11:44 shrimp Allergy Anaphylaxis Verified 05/08/23 11:44 fresh fruit & vegetables Allergy Rash/Hives Uncoded 05/08/23 11:44 Physical Examination - Vital Signs Vital Signs: Vital Signs Temp Pulse Resp BP Pulse Ox 05/08/23 12:20 60 18 123/74 97 05/08/23 10:32 65 16 146/84 98 05/08/23 09:32 98 F 72 16 150/89 99 05/08/23 09:27 98.9 F 82 18 166/82 99 Intake and Output 05/08/23 05/08/23 05/08/23 06:59 14:59 22:59 Other: Weight 74.843 kg Patient is a middle aged female, in no acute distress. Patient is alert awake oriented to time place and person. Patient knows it is May 2023, and that she is in [facility] in [place]. Speech and language functions are normal. Patient can name and repeat very well. No aphasia or dysarthria. Attention, concentration and fund of knowledge is adequate. On cranial nerve examination, pupils are equal, round and reacting to light, visual henry are full on confrontation, with no neglect on double simultaneous stimulation. Extraocular muscles are intact with no nystagmus. Face is symmetric, tongue protrudes to the midline. Palatal elevation and sensation normal, hearing and shoulder shrug normal, facial sensation normal. On muscle strength testing, there is no pronator drift and the strength is normal in arms and legs distally and proximally. Deep tendon reflexes are symmetric 1+ all over and plantars downgoing. Sensory to touch is equal with no neglect on double simultaneous stimulation. Cerebellar function showed no ataxia for [id number] testing. No dysdiadochokinesia. No ataxia for [id number] testing on either side. Tone and bulk of muscles normal. Gait deferred.. On general examination, there is no carotid bruit or murmur, S1-S2 audible. Chest is clear on consultation. Abdomen is soft nontender. No organomegaly, bowel sounds present. Peripheral pulses are present. No peripheral edema. Results - Laboratory Findings CBC and BMP: 05/08/23 09:47 05/08/23 09:47 Abnormal Lab Findings: Abnormal Labs 05/08/23 05/08/23 05/08/23 09:47 09:47 09:47 PT 9.9 L Glucose 106 H AST 54 H Creatine Kinase 164 H Urine Appearance Cloudy H Urine Blood Trace H Ur Squamous Epith Cells 17 H Urine Mucus Rare H Assessment and Plan Assessment: * Probable transient global amnesia. Possible TIA * Mild to moderately elevated blood pressure, rule out hypertension * Tobacco use * Family history of stroke (father massive CVA) * Anxiety disorder Plan: Patient will be worked up for possible TIA presenting with TGA. MRI of the brain without contrast, evaluate for acute CVA 2-D echo with bubble study to rule out PFO Carotid Doppler, rule out stenosis Fasting a.m. lipid panel EEG, rule out epileptiform activity. Hemoglobin A1c Optimize control of blood pressure. Start aspirin 325 mg daily. Neuro checks every 2 hours. Telemetry monitoring rule out any arrhythmia Recommend complete tobacco cessation. DVT prophylaxis: Heparin 5000 units subcu every 12 hours Neurology will continue to follow. Thank you for the consult.
[2023-05-09 11:50] LABS: Chol/HDL Ratio 2.97 Ratio; LDL Cholesterol,Calculated 127.3 mg/dL (0.0-131.0)
[2023-05-09 13:02] LABS: Amphetamine Screen,Urine Not Detected (NotDetected); Barbiturate Screen,Urine Not Detected (NotDetected); Benzodiazepines Screen,Urine Not Detected (NotDetected); Cocaine Screen,Urine Not Detected (NotDetected); Methadone Screen, Urine Not Detected (NotDetected); Opiate Screen,Urine Not Detected (NotDetected); Oxycodone Screen, Urine Not Detected (NotDetected); Phencyclidine Screen,Urine Not Detected (NotDetected); Tricyclic Antidepressant,Urine Not Detected (NotDetected); Urn Cannabinoid Scrn Not Detected (NotDetected)
--- NOTE | 2023-05-09 14:53 | MR ---
EXAMINATION TYPE: MR brain wo con DATE OF EXAM: 05/09/2023 1:19 PM COMPARISON: NONE HISTORY: TIA, Amnesia FINDINGS: The ventricles, basal cisterns and sulci overlying the cerebral convexities are minimally enlarged. There is evidence of minimal periventricular white matter ischemic demyelination. Remote deep white matter insults are also noted. No acute edema is seen on diffusion weighted imaging. There is no evidence for midline shift or mass effect. Acute intracranial hemorrhage or extra-axial collection is not evident. The paranasal sinuses and mastoid air cells are well-aerated. IMPRESSION: Age-related atrophic and chronic small vessel ischemic change. No acute intracranial process at this time.
--- NOTE | 2023-05-10 00:50 | EEG ---
ELECTROENCEPHALOGRAM REPORT PREAMBLE: This is a 53-year-old female with transient global amnesia. EEG FINDINGS: This is a 21-channel digital EEG recorded with video component, utilizing 10/20 international system with referential and bipolar montages. Background consists of moderately well-developed, but somewhat not very well regulated, low amplitude, 9 hertz alpha, seen in posterior head region. Intermittent suppressed background was also seen. Background does not seem to be clearly reactive to eye opening or closing. Photic driving response was seen with some flash frequencies. Drowsiness was seen with appearance of bilaterally symmetric theta frequency rhythm. Deeper stages of sleep were not clearly seen. No focal or generalized epileptiform activity was seen. EKG channel showed no obvious arrhythmia. IMPRESSION: This is a normal awake and drowsy EEG. No focal, lateralized or epileptiform activity was seen. No epileptiform activity was seen. MMABDIEL / IJN: [id number] /
[2023-05-10] MEDS: ASPIRIN 81 MG PO SCH (09:15)
[2023-05-10 09:39] VITALS: BP 119/76; PULSE 61; RESP 18; TEMP 98.3
--- NOTE | 2023-05-10 10:04 | P.PN ---
Subjective Progress Note Date: 05/09/23 Patient was seen for a follow-up. Patient is sitting in the bed. Offers no complaint. All symptoms have resolved. Still has complete loss of memory for that 45 minutes of time before she presented to the hospital. Denies headache. Objective - Vital Signs Vital signs: Vital Signs Temp 98.6 F 05/09/23 11:22 Pulse 63 05/09/23 11:22 Resp 16 05/09/23 11:22 BP 140/80 05/09/23 11:22 Pulse Ox 98 05/09/23 11:22 FiO2 Intake & Output 05/08/23 05/09/23 05/09/23 18:59 06:59 18:59 Weight 74.843 kg 74.843 kg Other: # Voids 1 2 - Exam Completely normal. Mentation normal. - Labs CBC & Chem 7: 05/08/23 09:47 05/08/23 09:47 Labs: Abnormal Lab Results - Last 24 Hours (Table) 05/08/23 Range/Units 09:47 Cholesterol 223.00 H (0.00-200.00) mg/dL HDL Cholesterol 75.10 H (40.00-60.00) mg/dL Assessment and Plan Assessment: * Probable transient global amnesia. Possible TIA * Mild to moderately elevated blood pressure, rule out hypertension * Tobacco use * Hyperlipidemia * Family history of stroke (father massive CVA) * Anxiety disorder Plan: Patient will be worked up for possible TIA presenting with TGA. MRI of the brain without contrast, revealed age-related atrophic and chronic small vessel ischemic change. No acute intracranial process. I personally reviewed MRI agree with the findings. 2-D echo with bubble study completed, results pending. Carotid Doppler, no significant vascular stenosis or atherosclerotic disease. Antegrade flow in both vertebral arteries. Fasting a.m. lipid panel cholesterol 223, LDL 127, HDL 75, triglycerides 103. Recommend to start statins to target LDL at least <100, preferably <70. Patient wants to hold off on statins and wants to try dietary adjustment first. She was recommended to have lipid panel checked in 3 months and if is still high, should start statins. EEG, was normal awake and drowsy. No focal, lateralized or epileptiform activity was seen. Hemoglobin A1c 5.4 Blood pressure is controlled. Start aspirin. With normal workup, we will decrease aspirin down to 81 mg daily. Telemetry monitoring showing no arrhythmia Recommend complete tobacco cessation. DVT prophylaxis: Heparin 5000 units subcu every 12 hours Neurologically clear for discharge, if the 2D echo comes back normal. Discussed with patient's nurse.
--- NOTE | 2023-05-10 10:36 | CA ---
Transthoracic Echo Report Name: Emily Souza Age: 53 Gender: F : 1970 Exam Date: 05/09/2023 10:45 Exam Location: [place] [facility] Ht (in): 65 Wt (lb): 165 Ordering Physician: Jen Lindo MD Attending/Referring Phys: Classroom Technology Technician Kiana Cee RDCS Procedure CPT: Indications: TGA Cardiac Hx: Technical Quality: Contrast 1: Total Dose (mL): Contrast 2: Total Dose (mL): MEASUREMENTS (Male / Female) Normal Values 2D ECHO LV Diastolic Diameter PLAX 4.4 cm 4.2 - 5.9 / 3.9 - 5.3 cm LV Systolic Diameter PLAX 2.8 cm IVS Diastolic Thickness 0.7 cm 0.6 - 1.0 / 0.6 - 0.9 cm LVPW Diastolic Thickness 1.0 cm 0.6 - 1.0 / 0.6 - 0.9 cm LV Relative Wall Thickness 0.4 LVOT Diameter 2.1 cm Aortic Root Diameter 3.3 cm LA Systolic Diameter LX 3.3 cm 3.0 - 4.0 / 2.7 - 3.8 cm LV Diastolic Volume MOD BP 77.5 cm??? 67 - 155 / 56 - 104 cm??? LV Systolic Volume MOD BP 33.0 cm??? 22 - 58 / 19 - 49 cm??? LV Ejection Fraction MOD BP 57.4 % >= 55 % LV Diastolic Volume MOD 4C 73.7 cm??? LV Systolic Volume MOD 4C 35.0 cm??? LV Ejection Fraction MOD 4C 52.5 % LV Diastolic Length 4C 7.3 cm LV Systolic Length 4C 5.5 cm LV Diastolic Volume MOD 2C 75.4 cm??? LV Systolic Volume MOD 2C 30.1 cm??? LV Ejection Fraction MOD 2C 60.1 % LV Diastolic Length 2C 6.8 cm LV Systolic Length 2C 5.7 cm DOPPLER AV Peak Velocity 127.5 cm/s AV Peak Gradient 6.5 mmHg AV Mean Velocity 87.8 cm/s AV Mean Gradient 3.5 mmHg AV Velocity Time Integral 27.1 cm LVOT Peak Velocity 94.0 cm/s LVOT Peak Gradient 3.5 mmHg LVOT Velocity Time Integral 18.8 cm LVOT Stroke Volume 62.6 cm??? LVOT Stroke Volume Index 34.3 ml/m??? AV Area Cont Eq vti 2.3 cm??? AV Area Cont Eq pk 2.4 cm??? Mitral E Point Velocity 92.2 cm/s Mitral A Point Velocity 83.0 cm/s Mitral E to A Ratio 1.1 MV Deceleration Time 174.5 ms MV E' Velocity 10.0 cm/s Mitral E to MV E' Ratio 9.2 PV Peak Velocity 75.4 cm/s PV Peak Gradient 2.3 mmHg FINDINGS Left Ventricle Left ventricular ejection fraction is estimated at 55-60 %.Normal Left ventricular size, wall thickness, systolic function with no obvious regional wall motion abnormalities. Normal Left ventricular diastolic filling pattern. Right Ventricle Normal right ventricular size and function. Right Atrium Normal right atrial size. Left Atrium Normal left atrial size. Mitral Valve Trace mitral regurgitation. Aortic Valve Aortic valve not well visualized. Tricuspid Valve No tricuspid regurgitation. Pulmonic Valve No pulmonic regurgitation. Pericardium No pericardial effusion. Aorta Aortic root and proximal ascending aorta not well visualized. CONCLUSIONS Normal LV function Previewed by: Dr. Brody Rivera MD (Electronically Signed) Final Date: 10 May 2023 10:36
--- NOTE | 2023-05-11 06:37 | P.DS ---
Providers Date of admission: 05/08/23 11:18 Attending physician: Gunnar Jones MD Consults: 05/08/23 11:16 Consult Physician Routine Consulting Provider: Jen Lindo Consult Reason/Comments: TIA vs transient global amnesia Do you want consulting provider notified?: Already Contacted Primary care physician: Renny Hernandez Assessment: Diagnosis: Transient global amnesia, rule out TIA versus stroke Nicotine dependence Hospital course: This is a pleasant 53 years old female with no significant past medical history. Presents because of transient change in her mental status She was talking to her coworker today, she came and she sat in her coworker chair which is unusual for her and then she started asking the same question about the date for tomorrow as she is supposed to get colposcopy procedure for her gynecological evaluation, because she keep repeated the questions and then she could not remember what happened and the next thing she remembers she is in the emergency room. As per coworkers home she talk to later told her that she put her head down and they were worried that she had a stroke, there was no involuntary movement or seizure-like activity. She did not pass out. No par alysis or anything she has been told by her coworkers.Patient evaluated by neurologist. Workup was unremarkable including MRI of the brain, Echocardiogram, and EEG is negative. Patient symptoms improved and she has been asymptomatic more than 24 hours. Patient eager to be discharged home today. Patient denies any other new complaints. I discussed the case with the neurologist who cleared her for discharge. Patient will be discharged on aspirin 81 mg Problems and management plan were discussed with the patient and he verbalized understanding and acceptance Patient was found stable and can be discharged home in guarded prognosis however he needs follow-up as an outpatient. Patient was instructed to follow up with PCP Dr. Bravo office within one week and patient agrees Patient instructed to follow-up with a neurologist Dr. Cornejo/Dr. Schulte in 1 to 2 weeks after discharge and she agrees Physical exam Gen: patient is a AAOx3, no distress CVS: S1-S2, RRR, no murmur Lungs: B/L CTA, no wheezing Abdomen: soft, no distention, no tenderness, positive bowel sounds Extremity: no leg edema or induration Time spent more than 35 minutes Patient Condition at Discharge: Stable Plan - Discharge Summary New Discharge Prescriptions: New Aspirin 81 mg PO DAILY #30 tab Continue Citalopram Hydrobromide [Citalopram HBr] 20 mg PO DAILY Montelukast [Singulair] 10 mg PO HS Cetirizine HCl [Zyrtec] 10 mg PO DAILY Discharge Medication List Cetirizine HCl [Zyrtec] 10 mg PO DAILY 05/08/23 [History] Citalopram Hydrobromide [Citalopram HBr] 20 mg PO DAILY 05/08/23 [History] Montelukast [Singulair] 10 mg PO HS 05/08/23 [History] Aspirin 81 mg PO DAILY #30 tab 05/10/23 [Rx] Follow up Appointment(s)/Referral(s): Zaid Ann MD [Medical Doctor] - 2 Weeks (Neurologist) Gadiel Schulte MD [STAFF PHYSICIAN] - 2 Weeks (Neurologist) Renny Hernandez [Primary Care Provider] - 1-2 days (Office did not answer, please call to schedule apt. ) Patient Instructions/Handouts: Transient Global Amnesia (ED) Discharge Disposition: HOME SELF-CARE
== END 2023-05-10 12:15 | disposition home or self-care (01) ==
LOC: EC 09:25 → 3SCARD 11:18
PROVIDERS: ADMIT Internal Medicine; ATTEND Internal Medicine
DX: G45.4 Transient global amnesia (principal); R03.0 Elevated blood-pressure reading, without diagnosis of hypertension; R51.9 Headache, unspecified; I49.3 Ventricular premature depolarization; I49.1 Atrial premature depolarization; F41.9 Anxiety disorder, unspecified; F17.210 Nicotine dependence, cigarettes, uncomplicated; Z79.899 Other long term (current) drug therapy; Z91.010 Allergy to peanuts; Z91.013 Allergy to seafood; Z91.040 Latex allergy status; Z91.018 Allergy to other foods; Z71.6 Tobacco abuse counseling; Z82.3 Family history of stroke
CPT/HCPCS: 96376 ×2; 96372 ×2; 96374; 99285; 36415; 95816; 93005; 93306; 80061; 80053; 82550; 84484; 85025; 85610; 85730; 81001; 80306; 83036; 71046; 93880; 70450; 70551; G0378 ×3; J1644 ×2; J3490 ×3

== ENCOUNTER → 2024-06-04 | Outpatient (CLI) | payer BC ==
--- NOTE | 2024-06-04 12:25 | MM ---
Reason for Exam: Screening (asymptomatic). Last mammogram was performed 1 year(s) and 2 month(s) ago. Patient History: Menarche at age 12. First Full-Term at age 26. Postmenopausal. Patient has history of breast feeding. Hormonal Contraceptives for 10 years from age 18 until age 38. Risk Values: Rosio 5 year model risk: 1.2%. NCI Lifetime model risk: 8.1%. Prior Study Comparison: 03/07/2021 Bilateral Screening Mammogram, [facility]. 03/08/2022 Bilateral MG 3D screening mammo w/cad, [facility]. 04/10/2023 Bilateral MG 3D screening mammo w/cad, [facility]. Tissue Density: The breasts are heterogeneously dense, which may obscure small masses. Findings: Analyzed By CAD. There is no suspicious group of microcalcifications or new suspicious mass in either breast. Overall Assessment: Benign, BI-RAD 2 Management: Screening Mammogram of both breasts in 1 year. . Patient should continue monthly self-breast exams. A clinical breast exam by your physician is recommended on an annual basis. This exam should not preclude additional follow-up of suspicious palpable abnormalities. Note on Rosio scores and lifetime risk: 1. A Rosio score greater than 3% is considered moderate risk. If this is the case, consider specialist referral to assess eligibility for a risk reducing agent. 2. If overall lifetime risk for the development of breast cancer is 20% or higher, the patient may qualify for future screening with alternating mammogram and breast MRI. [facility], , 06/04/2024 12:21 PM. Electronically signed and approved by: Jesus Stark M.D. [facility]
== END | disposition home or self-care (01) ==
LOC: RADMAMWWP 11:52
PROVIDERS: ATTEND Obstetrics & Gynecology
DX: Z12.31 Encounter for screening mammogram for malignant neoplasm of breast (principal); R92.333 Mammographic heterogeneous density, bilateral breasts; Z78.0 Asymptomatic menopausal state; Z92.0 Personal history of contraception
CPT/HCPCS: 77063; 77067